=== PATIENT | female | born 1935 | race African-American/Black ===

== ENCOUNTER 2021-01-04 13:57 | Observation (INO) ==
[2021-01-04] MEDS ORDERED: BISACODYL 5 MG TABLET PO PRN (14:57)
[2021-01-04] MEDS ORDERED: ACETAMINOPHEN 325 MG TABLET PO PRN (14:57)
[2021-01-04] MEDS ORDERED: GLUCAGON 1 MG VIAL IM PRN (14:57)
[2021-01-04] MEDS ORDERED: DEXTROSE 50% 25 GM/50 ML VIAL IV PRN (14:57)
[2021-01-04] MEDS ORDERED: ONDANSETRON 4 MG/2 ML VIAL IV PRN (14:57)
[2021-01-04] MEDS: SODIUM CHLORIDE 0.9% 1,000 ML IV SCH (16:00)
[2021-01-04] MEDS: PANTOPRAZOLE 40 MG TABLET PO SCH ×2 (16:00→21:06)
[2021-01-04 16:18] LABS: Hemoglobin 8.9 GM/DL (12.0-16.0)
[2021-01-04 16:34] LABS: Calcium 8.1 MG/DL (8.5-10.1); Osmolality,Calculated 274.7 MOS/KG (273-304)
[2021-01-04] MEDS: amLODIPine 5 MG TABLET PO SCH (16:40)
[2021-01-04] MEDS: INSULIN LISPRO 100 UNIT/ML SUBCUT SCH ×2 (18:07→21:28)
[2021-01-04] MEDS: ASCORBIC ACID 500 MG TABLET PO SCH (21:06)
[2021-01-04 23:45] LABS: Hematocrit 22.9 VOL% (35.7-47.0); Hemoglobin 7.8 GM/DL (12.0-16.0)
[2021-01-05 05:14] LABS: Basophils % 0.2 % (0.0-0.8); Hematocrit 22.7 VOL% (35.7-47.0); Hemoglobin 7.8 GM/DL (12.0-16.0); Immature Granulocytes % 0.4 %; Immature Granulocytes Absolute 0.03 #; Lymphocytes # 1.4 10*3/uL (1.4-4.0); Lymphocytes % 17.1 % (21.3-54.2); Mean Corpuscular HGB Conc 34.4 GM/DL (32-36); Mean Corpuscular Volume 97.4 FL (87-102); Mean Platelet Volume 11.3 FL (9.6-12.0); Monocytes % 9.8 % (1.7-12.7); Neutrophils % 72.5 % (38.7-73.9); Platelet Count 227 T/CUMM (130-400); Red Blood Count 2.33 MC/CUMM (3.8-5.5); Red Cell Distribution Width 18.9 % (9.3-17.3); White Blood Count 8.1 T/CUMM (4-12)
[2021-01-05 06:01] LABS: Bilirubin,Total 1.2 MG/DL (0.20-1.00); Calcium 7.8 MG/DL (8.5-10.1); Osmolality,Calculated 270.8 MOS/KG (273-304); Potassium 3.9 MMOL/L (3.5-5.1); Total Protein 6.5 G/DL (6.4-8.2)
[2021-01-05 06:04] LABS: Folate 11.26 NG/ML (5.38-24.0); Vitamin B12 > 2000 PG/ML (211-911)
[2021-01-05 06:06] LABS: Free T4 (Free Thyroxine) 1.35 NG/DL (0.76-1.46); Thyroid Stimulating Hormone 2.63 uIU/ml (0.358-3.74)
[2021-01-05 06:20] LABS: Anisocytosis 1+; Band Neutrophils 2 % (0-10); Eosinophils 1 % (0-10); Hypochromasia 1+; Lymphocytes 16 % (20-55); Macrocytosis 1+; Platelet Estimate Normal; Segmented Neutrophils 71 % (50-85); Target Cells Few; Total Cells Counted 100
[2021-01-05] MEDS ORDERED: MAGNESIUM SULF RIDER 2 GM/50 ML PREMIX IV PRN (07:05)
[2021-01-05] MEDS ORDERED: MAGNESIUM SULF RIDER 4 GM/100 ML PREMIX IV PRN (07:05)
[2021-01-05] MEDS ORDERED: SODIUM CHLORIDE 0.9% 1,000 ML IV PRN (07:07)
[2021-01-05] MEDS: INSULIN LISPRO 100 UNIT/ML SUBCUT SCH ×4 (08:05→20:35)
[2021-01-05] MEDS: amLODIPine 5 MG TABLET PO SCH (08:53)
[2021-01-05] MEDS: ASPIRIN EC 81 MG TABLET PO SCH (08:53)
[2021-01-05] MEDS: ATORVASTATIN 20 MG TABLET PO SCH (08:54)
[2021-01-05] MEDS: DONEPEZIL 10 MG TABLET PO SCH (08:55)
[2021-01-05] MEDS: PANTOPRAZOLE 40 MG TABLET PO SCH ×2 (08:56→20:42)
[2021-01-05] MEDS: MEMANTINE 10 MG TABLET PO SCH ×2 (08:56→20:41)
[2021-01-05] MEDS: ASCORBIC ACID 500 MG TABLET PO SCH ×2 (08:57→20:42)
[2021-01-05] MEDS ORDERED: NON-FORMULARY MEDICATION (Omeprazole 40 mg capsule,delayed release(DR/EC)) PO SCH (09:00)
[2021-01-05 10:49] LABS: Bacteria,Urine Few /HPF (Few); Bilirubin,Urine Negative (Negative); Blood, Urine Negative (Negative); Glucose,Urine (UA) Negative (Negative); Ketones,Urine Negative (Negative); Mucus,Urine Occasional /LPF (Occasional); Nitrite,Urine Negative (Negative); Protein,Urine Negative; RBC,Urine 3 /HPF (0-4); Squamous Epithelial Cell,Urine Occasional /HPF (0-10); Urine Appearance CLOUDY (Clear); Urine Color Yellow (Yellow); Urine Specific Gravity 1.013 (1.001-1.035)
[2021-01-05] MEDS ORDERED: cefTRIAXone 1,000 MG in SODIUM CHLORIDE 0.9% 100 ML IV SCH (11:30)
[2021-01-05 15:11] LABS: Hematocrit 24.8 VOL% (35.7-47.0); Hemoglobin 8.4 GM/DL (12.0-16.0)
[2021-01-05] MEDS: SODIUM CHLORIDE 0.9% 1,000 ML IV SCH ×2 (17:47→20:36)
[2021-01-06 06:03] LABS: Basophils % 0.1 % (0.0-0.8); Hematocrit 22.8 VOL% (35.7-47.0); Hemoglobin 7.9 GM/DL (12.0-16.0); Immature Granulocytes % 0.5 %; Immature Granulocytes Absolute 0.04 #; Lymphocytes # 1.4 10*3/uL (1.4-4.0); Lymphocytes % 15.7 % (21.3-54.2); Mean Corpuscular HGB Conc 34.6 GM/DL (32-36); Mean Corpuscular Volume 95.8 FL (87-102); Mean Platelet Volume 10.7 FL (9.6-12.0); Monocytes % 9.8 % (1.7-12.7); Neutrophils % 73.9 % (38.7-73.9); Platelet Count 244 T/CUMM (130-400); Red Blood Count 2.38 MC/CUMM (3.8-5.5); Red Cell Distribution Width 18.9 % (9.3-17.3); White Blood Count 8.8 T/CUMM (4-12)
[2021-01-06 06:26] LABS: Calcium 8.1 MG/DL (8.5-10.1)
[2021-01-06 06:52] LABS: Hypochromasia 2+; Lymphocytes 10 % (20-55); Macrocytosis 1+; Segmented Neutrophils 90 % (50-85); Total Cells Counted 100
[2021-01-06 06:53] LABS: Anisocytosis 1+; Microcytosis 1+; Platelet Estimate Decreased; Target Cells Slight
[2021-01-06] MEDS: INSULIN LISPRO 100 UNIT/ML SUBCUT SCH (07:52)
[2021-01-06 07:53] VITALS: BP 138/70
[2021-01-06] MEDS: ASPIRIN EC 81 MG TABLET PO SCH (09:21)
[2021-01-06] MEDS: DONEPEZIL 10 MG TABLET PO SCH (09:21)
[2021-01-06] MEDS: MEMANTINE 10 MG TABLET PO SCH (09:21)
[2021-01-06] MEDS: ATORVASTATIN 20 MG TABLET PO SCH (09:21)
[2021-01-06] MEDS: ASCORBIC ACID 500 MG TABLET PO SCH (09:21)
[2021-01-06] MEDS: PANTOPRAZOLE 40 MG TABLET PO SCH (09:22)
[2021-01-06] MEDS: amLODIPine 5 MG TABLET PO SCH (09:22)
[2021-01-10 12:10] LABS: 25-Hydroxy D Total 53 ng/mL; 25-Hydroxy D2 < 4.0 ng/mL; 25-Hydroxy D3 53 ng/mL
== END 2021-01-06 10:03 | disposition home health service (06) ==
LOC: N.ED 13:57 → N.EDINP 13:57 → SUATTDRO 14:57 → N.4E 16:31
PROVIDERS: ADMIT Internal Medicine; ATTEND Emergency Medicine